=== PATIENT | female | born 1945 | race Caucasian/White ===

== ENCOUNTER 2020-02-15 09:53 | Day surgery (SDC) | payer MEDICARE, MEDICAID, OTHER ==
[~2020-02-15 09:53] MED LIST: Lactated Ringers 1,000 ML IV SCH; Lidocaine 1%/Sod Bicarbonate in NS 8.4% 1 ML Syringe IDERM PRN; Sodium Chloride 0.9% 10 ML Syringe FLUSH PRN
[2020-02-15] MEDS ORDERED: 50% Dextrose in Water 50 ML Syringe IVPUSH PRN (10:06)
[2020-02-15] MEDS ORDERED: Sodium Chloride 0.9% 1,000 ML IV SCH (10:15)
[2020-02-15] MEDS ORDERED: Dextrose 5% in Water 1,000 ML IV SCH (10:15)
--- NOTE | 2020-02-15 10:52 | PCM.PREANE ---
Preanesthetic Assessment - Procedure Proposed Procedure: egd colonoscopy - Anesthesia/Transfusion/Family Hx Anesthesia History: Prior Anesthesia Without Reaction Family History of Anesthesia Reaction: No Transfusion History: Prior Transfusion Without Reaction - Review of Systems General: No Symptoms Pulmonary: Cough (chronic cough from heart) Cardiovascular: No Symptoms Gastrointestinal: No Symptoms Neurological: Difficulty Walking (walker), Weakness, Gait Disturbance (wheelchair when goes to dinner), Other (stroke 3 years ago- mild- no affect much) Other: Reports: Diabetes, Thyroid Problems, Sinus Problem, Depression, Anxiety - Physical Assessment NPO Status Date: 02/14/20 NPO Status Time: 23:50 Vital Signs: Last Vital Signs Temp 98.5 F 02/15/20 09:48 Pulse 74 02/15/20 09:48 Resp 20 02/15/20 09:48 BP 145/46 H 02/15/20 09:48 Pulse Ox 96 02/15/20 09:48 Height: 5 ft Weight: 105 kg ASA Class: 4 Mental Status: Alert & Oriented x3 Airway Class: Mallampati = 1 Dentition: Reports: Dentures (doesn't wear) Thyro-Mental Finger Breadths: 3 Mouth Opening Finger Breadths: 3 ROM/Head Extension: Limited/Partial Lungs: Decreased Breath Sounds Cardiovascular: Murmurs - Lab Values: Laboratory Last Values POC Glucose 75 mg/dL (83-110) L 02/15/20 10:10 COVID-19 PCR Not detected (NOT DETECT) 02/13/20 12:56 - Allergies Allergies/Adverse Reactions: Allergies Allergy/AdvReac Type Severity Reaction Status Date / Time codeine Allergy Anaphylactic Verified 02/14/20 12:59 Shock morphine AdvReac Drowsiness Verified 02/14/20 12:59 sulfamethoxazole AdvReac Nausea Verified 02/14/20 12:59 [From Bactrim] trimethoprim [From Bactrim] AdvReac Nausea Verified 02/14/20 12:59 - Blood Blood Available: No - Anesthesia Plan Beta Meseret: Metoprolol Med Last Dose Date: 02/15/20 Med Last Dose Time: 07:00 (+.3) - Acknowledgements Anesthesia Type Planned: MAC Pt an Appropriate Candidate for the Planned Anesthesia: Yes Alternatives and Risks of Anesthesia Discussed w Pt/Guardian: Yes Pt/Guardian Understands and Agrees with Anesthesia Plan: Yes PreAnesthesia Questionnaire HEENT History: Reports: None Cardiovascular History: Reports: Afib, Blood Clots/VTE/DVT, CAD, High Cholesterol, Hypertension, Other (See Below) Other Cardiovascular History: peripheral vascular disease, aortic valve stenosis, CHF, ablation for aflutter Respiratory History: Reports: Sleep Apnea, Other (See Below) Other Respiratory History: pulmonary coccidiodmycosis, chronic respiratory failure with hypoxia and hyercapnia, obesity hypoventilation syndrome, pleural effusion Gastrointestinal History: Reports: None Genitourinary History: Reports: Other (See Below) Other Genitourinary History: cardiorenal syndrome with renal failure, CKD IV, TADEO, stress urinary incontinence PUTTIER History: Reports: Musculoskeletal History: Reports: None Neurological History: Reports: CVA, Other (See Below) Other Neuro History: hydrocephalus, polyneuropathy, ventriculoperitoneal shunt Psychiatric History: Reports: Other (See Below) Other Psychiatric History: insomnia, bipolar Endocrine/Metabolic History: Reports: Diabetes, Type II, Hypothyroidism, Obesity/BMI 30+ Hematologic History: Reports: Anemia, Blood Transfusion(s), Iron Deficiency, Other (See Below) Other Hematologic History: hyperkalemia Oncologic (Cancer) History: Reports: None Dermatologic History: Reports: Other (See Below) Other Dermatologic History: thrombophlebitis - Infectious Disease History Infectious Disease History: Reports: None - Past Surgical History Head Surgeries/Procedures: Reports: None HEENT Surgical History: Reports: Cataract Surgery, Naso-Sinus Surgery, Tonsillectomy Cardiovascular Surgical History: Reports: Other (See Below) Other Cardiovascular Surgeries/Procedures: ablation for aflutter Respiratory Surgical History: Reports: None GI Surgical History: Reports: Appendectomy, Cholecystectomy Female Surgical History: Reports: Section, D&C Male Surgical History: Reports: None Endocrine Surgical History: Reports: None Neurological Surgical History: Reports: None Musculoskeletal Surgical History: Reports: None Oncologic Surgical History: Reports: None Dermatological Surgical History: Reports: None - SUBSTANCE USE Smoking Status *Q: Former Smoker Tobacco Use Within Last Twelve Months: No Second Hand Smoke Exposure: No Days Per Week of Alcohol Use: 0 Recreational Drug Use History: No - HOME MEDS Home Medications: Home Meds Aspirin [Adult Low Dose Aspirin EC] 81 mg PO DAILY 06/17/19 [History] Clopidogrel [Plavix] 75 mg PO DAILY 06/17/19 [History] Divalproex Sodium [Depakote] 500 mg PO DAILY 06/17/19 [History] Furosemide [Lasix] 80 mg PO DAILY 06/17/19 [History] Insulin Glargine,Hum.Rec.Anlog [Lantus Solostar] 30 units SUBCUT BEDTIME 06/17/19 [History] atorvaSTATin Calcium [Atorvastatin Calcium] 80 mg PO DAILY 06/17/19 [History] ondansetron HCL [Zofran] 4 mg PO ASDIRECTED PRN 06/17/19 [History] Acetaminophen [Tylenol] 650 mg PO Q4H PRN 02/14/20 [History] Aloe Vera/Sodium Chloride [[place] Saline Nasal Gel] 1 dose NASBOTH BID 02/14/20 [History] Cetirizine HCl [Zyrtec] 10 mg PO DAILY PRN 02/14/20 [History] Levothyroxine Sodium [Synthroid] 175 mcg PO DAILY 02/14/20 [History] Melatonin 10 mg PO DAILY 02/14/20 [History] Metoprolol Succinate 50 mg PO DAILY 02/14/20 [History] Sennosides [Senna] 17.2 mg PO BEDTIME PRN 02/14/20 [History] - CURRENT (IN HOUSE) MEDS Current Meds: Current Medications Dextrose/Water (Dextrose 50% In Water) 50 ml IVPUSH ASDIRECTED PRN PRN Reason: Blood Glucose Stop: 02/15/20 18:02 Lactated Ringer's (Ringers, Lactated) 1,000 mls @ 125 mls/hr IV ASDIRECTED ROMAN Stop: 02/15/20 23:00 Sodium Chloride (Normal Saline) 1,000 mls @ 125 mls/hr IV ASDIRECTED ROMAN Stop: 02/15/20 23:00 Dextrose/Water (Dextrose 5% In Water) 1,000 mls @ 100 mls/hr IV ASDIRECTED ROMAN Last Admin: 02/15/20 10:30 Dose: 100 mls/hr Documented by: Lidocaine/Sodium Bicarbonate (Buffered Lidocaine 1% In Ns 8.4%) 0.25 ml IDERM ONETIME PRN PRN Reason: Prior to IV Start Stop: 02/15/20 18:00 Last Admin: 02/15/20 10:30 Dose: 0.25 ml Documented by: Sodium Chloride (Saline Flush) 10 ml FLUSH ASDIRECTED PRN PRN Reason: Keep Vein Open Stop: 02/15/20 18:00
[2020-02-15] MEDS ORDERED: Lidocaine 1% 8 ML ONE (11:11)
[2020-02-15] MEDS ORDERED: fentaNYL 100 MCG/2 ML SDV ONE (11:12)
[2020-02-15] MEDS ORDERED: Propofol 200 MG/20 ML SDV ONE (11:12)
[2020-02-15] MEDS ORDERED: Midazolam 1 MG/ML 2 ML SDV ONE (11:43)
[2020-02-15] MEDS ORDERED: Ketamine 500 mg/10 ML MDV ONE (11:43)
[2020-02-15] MEDS ORDERED: Lidocaine 1% 2 ML ONE (13:02)
--- NOTE | 2020-02-15 13:22 | PCM.OPNOTE ---
- General Post-Op/Procedure Note Date of Surgery/Procedure: 02/15/20 Operative Procedure(s): EGD and incomplete colonoscopy Findings: 1. Transverse colon polyp x 2 2. Hiatal hernia 3. Gastritis with superficial erosions in the antrum 4. Duodenitis Pre Op Diagnosis: anemia, rectal bleeding Post-Op Diagnosis: same Anesthesia Technique: MAC Primary Surgeon: Melinda Lopez Anesthesia Provider: Tresa Dasilva Pathology: 1. Transverse colon polyp x 2 2. Gastric antrum biopsy 3. Duodenum biopsy Fluid Replacement, Intraop: 500 Output, Urine Amount: 0 EBL in mLs: 0 Complications: none apparent Condition: Good
--- NOTE | 2020-02-15 13:23 | PCM.PRNOTE ---
- Free Text/Narrative Note: Operative Report Date of Procedure: February 15, 2020 Pre Op Diagnosis: Anemia and rectal bleeding Post-Op Diagnosis: Same Operative Procedures: 1. EGD with biopsy 2. Incomplete Colonoscopy to the transverse colon Primary Surgeon: Melinda Lopez MD Anesthesia Provider: Lupe Dasilva CRNA Anesthesia Technique: MAC IV Fluid Replacement, Intraop: 500cc crystalloid Output, Urine Amount: 0cc EBL in mLs: 0cc Findings: 1. Transverse colon polyp x 2 2. Hiatal hernia 3. Gastritis with superficial erosions in the antrum 4. Duodenitis Specimens: 1. Transverse colon polyp x 2 2. Gastric antrum biopsy 3. Duodenum biopsy Drain/Tubes: None Indication: The patient is an 74-year-old lady who presented to the clinic with history of rectal bleeding as well as anemia of unknown origin. The patient reported needing multiple blood transfusions. The patient was consented for a diagnostic EGD and colonoscopy. Risks of bleeding, and perforation were discussed, and the patient agreed to the risks and wished to proceed. Description of the procedure: The patient was taken back to the endoscopy suite, and placed in the left lateral decubitus position. The patient was sedated with MAC anesthesia. Very light sedation was provided due to the patient's extensive medical comorbidities. The patient was hypotensive at the start of the case, this improved with stimulation due to the colonoscopy. Anorectal examination was performed. No lesions, masses or hemorrhoids were noted externally or on palpation. The scope was placed into the rectum and advanced to the transverse colon. There was moderate tortuosity of the colon, as well as significant looping of the scope. The patient was experiencing discomfort during this procedure due to the low level of sedation. In addition, she was too medically unstable to allow for position changes. Therefore, we attempted some external abdominal pressure, but this was only partially successful. The scope was slowly withdrawn, paying attention to the mucosa. The patient had excellent bowel prep, greater than 95% of the mucosa was visible. A flat 3 mm polyp was noted in the transverse colon, as well as a pedunculated 4 mm polyp in the transverse colon. Both removed using cold biopsy forceps. In the rectum, scope was retroflexed and some hemorrhoidal tissue was noted. This was minimal and did not merit hemorrhoid banding. The scope was placed back in the lumen and excess air was aspirated. The scope was removed. The patient did tolerate the colonoscopy and decision was made to proceed with EGD. A bite block was placed. The Olympus video endoscope was inserted into the oropharynx and guided under direct vision into the esophagus, stomach, and duodenum. The second portion of the duodenum was remarkable for inflammation with areas of erythema and denuded villi. Biopsies were taken with a cold biopsy forceps in the duodenum.. The gastric antrum was inspected and cold biopsy forceps were used to take tissue samples for H. pylori as well as to biopsy some areas of superficial erosion and erythema. The scope was withdrawn to the stomach and retroflexed. There was no increased fluid, food or secretions in the upper gastrointestinal tract. No erosions or ulcers were noted. The scope was withdrawn to the esophagus. A this point we noted a 1cm sliding hiatal hernia. No Barretts esophagus changes were noted, and the patient had a very regular looking Z line. The endoscope was then withdrawn. The patient tolerated the procedure very well. Complications: None apparent Condition: The patient was transported to PACU in stable condition. Melinda Lopez MD General Surgery
--- NOTE | 2020-02-15 13:36 | PCM48HPAN ---
Post Anesthesia Note - EVALUATION WITHIN 48HRS OF ANESTHETIC Vital Signs in Normal Range: Yes Patient Participated in Evaluation: Yes Respiratory Function Stable: Yes (On O2 at 3L/NC baseline home O2 requirements) Airway Patent: Yes Cardiovascular Function Stable: Yes Hydration Status Stable: Yes Pain Control Satisfactory: Yes Nausea and Vomiting Control Satisfactory: Yes Mental Status Recovered: Yes Vital Signs: Last Vital Signs Temp 36.9 C 02/15/20 09:48 Pulse 74 02/15/20 09:48 Resp 20 02/15/20 09:48 BP 145/46 H 02/15/20 09:48 Pulse Ox 96 02/15/20 09:48 1328 152/63 74 16 97F 96%
== END 2020-02-15 14:35 | disposition home or self-care (01) ==
LOC: JD.SDS 09:53
PROVIDERS: ATTEND Surgery
DX: D12.3 Benign neoplasm of transverse colon (principal); K29.90 Gastroduodenitis, unspecified, without bleeding; D64.9 Anemia, unspecified; K44.9 Diaphragmatic hernia without obstruction or gangrene; K25.9 Gastric ulcer, unspecified as acute or chronic, without hemorrhage or perforation; Q43.8 Other specified congenital malformations of intestine; K64.9 Unspecified hemorrhoids; K31.89 Other diseases of stomach and duodenum; D72.829 Elevated white blood cell count, unspecified; F31.9 Bipolar disorder, unspecified; I25.10 Atherosclerotic heart disease of native coronary artery without angina pectoris; E11.22 Type 2 diabetes mellitus with diabetic chronic kidney disease; I13.0 Hypertensive heart and chronic kidney disease with heart failure and stage 1 through stage 4 chronic kidney disease, or unspecified chronic kidney disease; N18.4 Chronic kidney disease, stage 4 (severe); I50.9 Heart failure, unspecified; E11.51 Type 2 diabetes mellitus with diabetic peripheral angiopathy without gangrene; E66.9 Obesity, unspecified; E03.9 Hypothyroidism, unspecified; E11.42 Type 2 diabetes mellitus with diabetic polyneuropathy; J44.9 Chronic obstructive pulmonary disease, unspecified; Z11.59 Encounter for screening for other viral diseases; Z88.5 Allergy status to narcotic agent; Z88.2 Allergy status to sulfonamides; Z88.1 Allergy status to other antibiotic agents; Z79.4 Long term (current) use of insulin; Z79.899 Other long term (current) drug therapy; Z68.41 Body mass index [BMI] 40.0-44.9, adult; Z79.82 Long term (current) use of aspirin; Z87.891 Personal history of nicotine dependence
CPT/HCPCS: 43239; 45380; 82962; J2001; J2250; J3010; J7060; U0002; 00813; 88305; J2704

== ENCOUNTER 2020-04-11 04:36 | Emergency (ER) | payer MEDICARE, MEDICAID ==
--- NOTE | 2020-04-11 05:38 | EDM.PDOC ---
ED HPI GENERAL MEDICAL PROBLEM - General Chief Complaint: Gastrointestinal Problem Stated Complaint: [facility] Time Seen by Provider: 04/11/20 04:59 Source of Information: Reports: Patient History Limitations: Reports: Physical Impairment (Very hard of hearing, and the patient forgot her hearing aids) - History of Present Illness INITIAL COMMENTS - FREE TEXT/NARRATIVE: Mrs. Moffett is a pleasant 75-year-old woman who is now brought to the ED by EMS for low blood pressure. According to the patient, she has had a GI bleed, source unknown, despite undergoing one EGD and one colonoscopy, which did not reveal a source. She receives PRBC transfusions every few months, and estimates that she has undergone 3 so far. She states that she was told that her BP and heart rate were low at the alf this morning, which is why she was sent here, however, the patient also has diabetic neuropathy, and does not like to have her BP checked on her upper arm, therefore we suspect that it was checked on her wrist, providing an inaccurately low value of 90/31, since her BP upon arrival here was 131/72, and it cheryl since then, without any treatment. With respect to her bradycardia, the patient is on metoprolol. The patient reports chronic body pain, but states that she is unaware of the color of her stools. She states that she sometimes gets abdominal cramps. Other than the symptoms, however, the patient denies having a recent fever, chills, sore throat, ear pain, nasal or sinus congestion, cough, dyspnea, chest pain, palpitations, nausea, vomiting, constipation, diarrhea, abdominal pain, urinary symptoms, recent weight gain or weight loss, headaches, or rashes. The patient's PCP is Dr. Franco Good. - Related Data Allergies Allergy/AdvReac Type Severity Reaction Status Date / Time codeine Allergy Anaphylactic Verified 04/11/20 04:43 Shock morphine AdvReac Drowsiness Verified 04/11/20 04:43 sulfamethoxazole AdvReac Nausea Verified 04/11/20 04:43 [From Bactrim] trimethoprim [From Bactrim] AdvReac Nausea Verified 04/11/20 04:43 Home Meds: Home Meds Aspirin [Adult Low Dose Aspirin EC] 81 mg PO DAILY 06/17/19 [History] Divalproex Sodium [Depakote] 500 mg PO DAILY 06/17/19 [History] Furosemide [Lasix] 80 mg PO DAILY 06/17/19 [History] Insulin Glargine,Hum.Rec.Anlog [Lantus Solostar] 30 units SUBCUT BEDTIME 06/17/19 [History] atorvaSTATin Calcium [Atorvastatin Calcium] 80 mg PO DAILY 06/17/19 [History] ondansetron HCL [Zofran] 4 mg PO Q8H PRN 06/17/19 [History] Acetaminophen [Tylenol] 650 mg PO Q4H PRN 02/14/20 [History] Aloe Vera/Sodium Chloride [[place] Saline Nasal Gel] 1 dose NASBOTH BID 02/14/20 [History] Cetirizine HCl [Zyrtec] 10 mg PO DAILY PRN 02/14/20 [History] Levothyroxine Sodium [Synthroid] 175 mcg PO DAILY 02/14/20 [History] Melatonin 10 mg PO BEDTIME 02/14/20 [History] Metoprolol Succinate 50 mg PO DAILY 02/14/20 [History] Sennosides [Senna] 17.2 mg PO ONCALL PRN 02/14/20 [History] Clopidogrel [Plavix] 75 mg PO DAILY #0 02/15/20 [Rx] Famotidine 10 mg PO BID 04/11/20 [History] polyethylene glycoL 3350 [MiraLAX] 17 gm PO DAILY PRN 04/11/20 [History] Past Medical History HEENT History: Reports: Allergic Rhinitis Cardiovascular History: Reports: Afib (s/p ablation), CAD, Heart Failure (systolic and diastolic), High Cholesterol, Hypertension, PVD, Other (See Below) (Aortic stenosis) Respiratory History: Reports: COPD Gastrointestinal History: Reports: Gastritis, GERD, GI Bleed (source unknown) Genitourinary History: Reports: Chronic Renal Insuffiency, Urinary Incontinence (stress incontinence) Musculoskeletal History: Reports: RA Neurological History: Reports: CVA, Neuropathy, Diabetic, Other (See Below) (Hydrocephalus, s/p DEMO COORDINATOR shunt) Psychiatric History: Reports: Bipolar, Other (See Below) (insomnia) Endocrine/Metabolic History: Reports: Diabetes, Type II, Hypothyroidism, Obesity/BMI 30+ Hematologic History: Reports: Anemia, Blood Transfusion(s), Iron Deficiency - Past Surgical History Head Surgeries/Procedures: Reports: Other (See Below) (DEMO COORDINATOR shunt) HEENT Surgical History: Reports: Cataract Surgery, Tonsillectomy (5 yrs old) Cardiovascular Surgical History: Reports: Cardiac Ablation (for A-fib), Coronary Artery Bypass (x 2 or 3 vessel), Coronary Artery Stent (x 3 or 4) GI Surgical History: Reports: Appendectomy (22 yrs old), Cholecystectomy (1970), Colonoscopy (x 1), EGD (x 1) Female Surgical History: Reports: Section, D&C Social & Family History - Tobacco Use Smoking Status *Q: Former Smoker Years of Tobacco use: 5 Packs/Tins Daily: 1 Month/Year Tobacco Last Used: Quit 1970 - Caffeine Use Caffeine Use: Reports: None - Alcohol Use Alcohol Use History: No - Recreational Drug Use Recreational Drug Use: No - Living Situation & Occupation Living situation: Reports: , Extended Care Facility ([facility]) Occupation: Retired ED ROS GENERAL - Review of Systems Review Of Systems: Comprehensive ROS is negative, except as noted in HPI. ED EXAM, GENERAL - Physical Exam Exam: See Below Exam Limited By: No Limitations General Appearance: Alert, WD/WN, No Apparent Distress Eye Exam: Bilateral Eye: EOMI, Normal Inspection Ears: Normal External Exam, Hearing Loss Nose: Normal Inspection Throat/Mouth: Normal Inspection, Normal Lips, Normal Voice, No Airway Compromise Head: Atraumatic, Normocephalic Neck: Normal Inspection, Full Range of Motion Respiratory/Chest: No Respiratory Distress, Lungs Clear, Normal Breath Sounds, No Accessory Muscle Use Cardiovascular: Normal Peripheral Pulses, No Gallop, No JVD, No Rub, Systolic Murmur (loud, harsh, heard cross the precordium and into both carotid arteries, consistent with aortic stenosis), Irregularly Irregular (bradycardic) Peripheral Pulses: 2+: Radial (L), Radial (R) GI/Abdominal: Normal Bowel Sounds, Soft, Non-Tender, No Organomegaly, No Distention, No Abnormal Bruit, No Mass (Female) Exam: Deferred Rectal (Female) Exam: Deferred Back Exam: Normal Inspection, Full Range of Motion, NT Extremities: Normal Range of Motion, Normal Capillary Refill Neurological: Alert, Oriented, Normal Cognition, No Motor/Sensory Deficits Psychiatric: Normal Affect Skin Exam: Warm, Dry, Intact, Normal Color, No Rash Course - Vital Signs Last Recorded V/S: Last Vital Signs Temp 36.2 C 04/11/20 06:50 Pulse 44 L 04/11/20 06:50 Resp 15 04/11/20 06:50 BP 125/30 L 04/11/20 06:50 Pulse Ox 100 04/11/20 04:55 - Orders/Labs/Meds Orders: Active Orders 24 hr Category Date Time Status FRESH FROZEN PLASMA [BBK] Stat Lab 04/11/20 04:50 Results RED BLOOD CELLS LP [BBK] Stat Lab 04/11/20 04:50 Results TYPE AND SCREEN [BBK] Stat Lab 04/11/20 04:50 Results Sodium Chloride 0.9% [Normal Saline] 250 ml Med 04/11/20 06:30 Active IV ASDIRECTED Transfuse PRBC [Transfuse Red Blood Cells] [COMM] Stat Oth 04/11/20 05:08 Ordered Medication Orders Sodium Chloride (Normal Saline) 250 mls @ 100 mls/hr IV ASDIRECTED ROMAN Last Admin: 04/11/20 06:23 Dose: 100 mls/hr Documented by: MEENA Labs: Laboratory Tests 04/11/20 04/11/20 04/11/20 Range/Units 04:50 04:50 04:50 WBC 15.80 H (3.98-10.04) K/mm3 RBC 2.17 L (3.98-5.22) M/mm3 Hgb 5.6 L* (11.2-15.7) gm/dl Hct 18.8 L (34.1-44.9) % MCV 86.6 (79.4-94.8) fl MCH 25.8 (25.6-32.2) pg MCHC 29.8 L (32.2-35.5) g/dl RDW Std Deviation 44.8 (36.4-46.3) fL Plt Count 271 (182-369) K/mm3 MPV 10.7 (9.4-12.3) fl Neut % (Auto) 73.5 H (34.0-71.1) % Lymph % (Auto) 19.1 L (19.3-51.7) % [place] % (Auto) 6.5 (4.7-12.5) % Eos % (Auto) 0.3 L (0.7-5.8) Baso % (Auto) 0.2 (0.1-1.2) % Neut # (Auto) 11.61 H (1.56-6.13) K/mm3 Lymph # (Auto) 3.02 (1.18-3.74) K/mm3 [place] # (Auto) 1.02 H (0.24-0.36) K/mm3 Eos # (Auto) 0.05 (0.04-0.36) K/mm3 Baso # (Auto) 0.03 (0.01-0.08) K/mm3 Manual Slide Review Abnormal smear Sodium 139 (136-145) mEq/L Potassium 4.6 (3.5-5.1) mEq/L Chloride 98 (98-107) mEq/L Carbon Dioxide 30 (21-32) mEq/L Anion Gap 15.6 H (5-15) BUN 122 H (7-18) mg/dL Creatinine 3.0 H (0.55-1.02) mg/dL Est Cr Clr Drug Dosing 13.99 mL/min Estimated GFR (MDRD) 15 (>60) mL/min BUN/Creatinine Ratio 40.7 H (14-18) Glucose 219 H (83-115) mg/dL Calcium 9.3 (8.5-10.1) mg/dL Total Bilirubin 0.2 (0.2-1.0) mg/dL AST 15 (15-37) U/L ALT 15 (14-59) U/L Alkaline Phosphatase 57 (46-116) U/L Total Protein 6.6 (6.4-8.2) g/dl Albumin 2.9 L (3.4-5.0) g/dl Globulin 3.7 gm/dL Albumin/Globulin Ratio 0.8 L (1-2) Blood Type A POSITIVE Gel Antibody Screen Negative Crossmatch See Detail Meds: Medications Generic Name Dose Route Start Last Admin Trade Name Freq PRN Reason Stop Dose Admin Sodium Chloride 250 mls @ 100 mls/hr 04/11/20 06:30 04/11/20 06:23 Normal Saline IV 100 mls/hr ASDIRECTED ROMAN Administration Discontinued Medications Generic Name Dose Route Start Last Admin Trade Name Freq PRN Reason Stop Dose Admin Sodium Chloride Confirm 04/11/20 06:15 04/11/20 06:22 Normal Saline Administered 04/11/20 06:16 Not Given Dose 250 mls @ as directed .ROUTE .[facility] - Re-Assessments/Exams Free Text/Narrative Re-Assessment/Exam: 04/11/20 05:36 As above, the patient has an approximately 1 year history of a GI bleed, source unknown despite an EGD and colonoscopy. She states that she gets a PRBC transfusion every few months, and estimates that she has had about 3 so far. She was sent to the ED due to low blood pressure and a low heart rate at the alf, however, upon arrival to the ED, her BP is 131/72, and at present, it is 154/29, without any treatment. We believe that her BP at the alf was checked on her wrist, not on her arm, giving a falsely low value. A CBC obtained at triage finds her H/H to be depressed at 5.6/18.8. Her BUN/Cr are elevated at 122/3.0, with a blood glucose of 219. We do not have a prior CBC or CMP to compare these values. Case discussed with Dr. Good at 05:30. He recommended that we transfuse 2 units of PRBCs, however, he did not feel that FFP was necessary. I have therefore ordered 2 units of PRBCs to be transfused, after which the patient can be returned to [facility]. 04/11/20 06:53 Nava PERALTA estimates that the PRBC transfusion will take until about 11:00 or noon. I will prepare her discharge paperwork at this time, since I will be going off shift in a few minutes. Departure - Departure Time of Disposition: 06:54 Disposition: Home, Self-Care 01 Condition: Good Clinical Impression: Severe anemia - Discharge Information *PRESCRIPTION DRUG MONITORING PROGRAM REVIEWED*: Not Applicable *COPY OF PRESCRIPTION DRUG MONITORING REPORT IN PATIENT SHERICE: Not Applicable Referrals: Franco Good MD [Physician] - Forms: ED Department Discharge Additional Instructions: Mrs. Perdomo was seen in the emergency room for low blood pressure. Upon arrival to the ER, the patient's blood pressure was found to be normal, and remained so during her stay. Work-up in the ER included a CBC, which found her hemoglobin to be severely depressed at 5.6. Her PCP, Dr. Good, was consulted, and she was transfused 2 units of PRBCs during her ER visit. Since the source of her anemia, a GI bleed of undetermined location, has already been diagnosed, no further work-up was performed in the ER. If any other problems, please do not hesitate to return Mrs. Perdomo to the ER. Sepsis Event Note (ED) - Evaluation Sepsis Screening Result: No Definite Risk - Focused Exam Vital Signs: Vital Signs Temp Temp Pulse Resp BP Pulse Ox 04/11/20 06:50 36.2 C 44 L 15 125/30 L 04/11/20 06:35 36.1 C 43 L 17 125/30 L 04/11/20 06:20 36.1 C 43 L 18 137/26 L 04/11/20 04:55 36.1 C 49 L 13 131/72 100 - My Orders Last 24 Hours: My Active Orders 04/11/20 04:50 FRESH FROZEN PLASMA [BBK] Stat RED BLOOD CELLS LP [BBK] Stat TYPE AND SCREEN [BBK] Stat 04/11/20 05:08 Transfuse PRBC [Transfuse Red Blood Cells] [COMM] Stat 04/11/20 06:30 Sodium Chloride 0.9% [Normal Saline] 250 ml IV ASDIRECTED - Assessment/Plan Last 24 Hours: My Active Orders 04/11/20 04:50 FRESH FROZEN PLASMA [BBK] Stat RED BLOOD CELLS LP [BBK] Stat TYPE AND SCREEN [BBK] Stat 04/11/20 05:08 Transfuse PRBC [Transfuse Red Blood Cells] [COMM] Stat 04/11/20 06:30 Sodium Chloride 0.9% [Normal Saline] 250 ml IV ASDIRECTED
[2020-04-11] MEDS ORDERED: Sodium Chloride 0.9% 250 ML ONE (06:15)
[2020-04-11] MEDS ORDERED: Sodium Chloride 0.9% 250 ML IV SCH (06:30)
== END 2020-04-11 11:55 | disposition home or self-care (01) ==
LOC: JD.ED 04:36
DX: D64.9 Anemia, unspecified (principal); I48.91 Unspecified atrial fibrillation; I25.10 Atherosclerotic heart disease of native coronary artery without angina pectoris; E78.00 Pure hypercholesterolemia, unspecified; I13.0 Hypertensive heart and chronic kidney disease with heart failure and stage 1 through stage 4 chronic kidney disease, or unspecified chronic kidney disease; I50.9 Heart failure, unspecified; E11.51 Type 2 diabetes mellitus with diabetic peripheral angiopathy without gangrene; J44.9 Chronic obstructive pulmonary disease, unspecified; E03.9 Hypothyroidism, unspecified; E66.9 Obesity, unspecified; Z68.39 Body mass index [BMI] 39.0-39.9, adult; N18.9 Chronic kidney disease, unspecified; E11.22 Type 2 diabetes mellitus with diabetic chronic kidney disease; M06.9 Rheumatoid arthritis, unspecified; E11.40 Type 2 diabetes mellitus with diabetic neuropathy, unspecified; Z88.5 Allergy status to narcotic agent; Z88.2 Allergy status to sulfonamides; Z88.1 Allergy status to other antibiotic agents; Z79.82 Long term (current) use of aspirin; Z79.4 Long term (current) use of insulin; Z79.02 Long term (current) use of antithrombotics/antiplatelets; Z79.899 Other long term (current) drug therapy; Z87.891 Personal history of nicotine dependence
CPT/HCPCS: 36415; 36430; 80053; 85025; 86850; 86900; 86901; 86922; 96360; 96361; 99283; 99285-25; J7050; P9016